=== PATIENT | male | born 1945 | race Caucasian/White ===

== ENCOUNTER → 2023-06-11 06:37 | Outpatient (REF) | payer MEDICARE, OTHER, SELFPAY ==
[2023-06-11] VITALS (7 sets, daily range): BP systolic 51–157; BP diastolic 65–82
[2023-06-11] MEDS: ANCEF 10 IV (08:28)
== END ==
LOC: RADI 06:37
PROVIDERS: ATTENDING PHYSICIAN Internal Medicine Hematology & Oncology; FAMILY PHYSICIAN Internal Medicine
DX: C34.90 Malignant neoplasm of unspecified part of unspecified bronchus or lung (principal)
CPT/HCPCS: 36561; 76937; 77001; 99152; 99153; C1788

== ENCOUNTER → 2023-06-18 08:54 | Outpatient (REF) | payer MEDICARE, OTHER, SELFPAY ==
[2023-06-18 11:51] LABS: % Basophils 0.2 % (0-2); % Eosinophils 9.3 % (0-6); % Immature Granulocytes 1.3 % (0-0.5); % Lymphocytes 11.9 % (20.5-51.1); % Monocytes 5.5 % (1.7-9.3); % Neutrophils 71.8 % (42.2-75.2); Absolute Eosinophils 0.9 10^3/uL (0-0.7); Absolute Immature Granulocytes 0.1 10^3/uL (0-0.05); Absolute Lymphocytes 1.1 10^3/uL (1.2-3.4); Absolute Monocytes 0.5 10^3/uL (0.1-0.6); Absolute Neutrophils 6.5 10^3/uL (1.4-6.5); Hematocrit 43.7 % (39.0-52.0); Hemoglobin 14.5 g/dL (13.0-18.0); Mean Corp Hgb Conc. 33.2 g/dL (33.0-37.0); Mean Corpuscular Hgb 30.9 pg (27.0-31.0); Nucleated Red Blood Cells % 0 % (-); Red Cell Dist. Width 12.3 % (11.5-14.5); White Blood Cell Count 9.1 10^3/uL (4.8-10.8)
[2023-06-18 15:36] LABS: Mean Platelet Volume 11.5 fL (7.4-10.4); Platelet Count 72 10^3/uL (130-400)
== END ==
LOC: HWLAB 08:54
PROVIDERS: ATTENDING PHYSICIAN Internal Medicine Hematology & Oncology; FAMILY PHYSICIAN Internal Medicine
DX: C34.32 Malignant neoplasm of lower lobe, left bronchus or lung (principal); Z85.820 Personal history of malignant melanoma of skin; C82.09 Follicular lymphoma grade I, extranodal and solid organ sites
CPT/HCPCS: 36415; 85025

== ENCOUNTER 2023-06-21 19:59 | Emergency (ER) | payer MEDICARE, OTHER, SELFPAY ==
[2023-06-21] VITALS (9 sets, daily range): BP systolic 125–184; BP diastolic 69–91; PULSE 61–71; BMI 30.6
--- NOTE | 2023-06-21 20:28 | ED.GENMED ---
History of Present Illness
<Rod Love PA-C - Last Filed: 06/24/23 08:35>
General
Chief Complaint: Cardiac Symptoms
Source: patient
Exam Limitations: none
Time Seen by Provider: 06/21/23 20:03
Travel History
Have you had any contact with someone who has COVID-19?: No
Do you have any symptoms of coronavirus? Fever > 100 degrees, chills, cough, shortness of breath, sore throat, loss of taste or smell, muscle aches, or headache?: No
History of Present Illness
History of Present Illness:
77-year-old male presents with pounding heart sensation since about 5 hours prior. It has been coming and going. No significant chest pain. He denies shortness of breath nausea or diaphoresis. He had his first chemo treatment for lung cancer
about 1 week ago. He is not anticoagulated. No leg swelling or calf pain. No abdominal pain. No other complaints at this time
Past History
<Rod Love PA-C - Last Filed: 06/24/23 08:35>
Past History
ED Past Medical History: Hypercholesterolemia
ED Past Surgical History: None
Social History
Tobacco: Non-smoker
Alcohol: Occasional
Drug: None
Personal:
Living: with family
Phy Exam
<Rod Love PA-C - Last Filed: 06/24/23 08:35>
Physical Exam
Physical Exam:
General: Well-appearing male no acute respiratory distress
HEENT: Normocephalic atraumatic neck is supple
Heart: Regular rate and rhythm no murmurs
Lungs: Clear to auscultation bilaterally no wheezing
Extremities: No cyanosis or edema
Skin: Warm no rash
Course
<Rod Love PA-C - Last Filed: 06/24/23 08:35>
Orders/Labs/Results
Orders:
Orders
06/21/23 20:02
Electrocardiogram (*1) Urgent
Reason for Study: Chest Pain
EKG- Treatment ONCE
06/21/23 20:27
Complete Blood Count/With Diff Urgent
Comprehensive Metabolic Panel Urgent
Manual Differential Urgent
TSH Reflex To Free T4 Urgent
06/21/23 21:24
CT Chest Pe Study Urgent
Comment:
Reason For Exam: palpitations
06/21/23 21:31
Troponin I Urgent
06/21/23 23:04
0.9% Sodium Chloride 500 ml [Nss] 500 ml IV BOLUS
06/21/23 23:21
Orthostatic VS- Treatment ONCE
06/21/23 23:52
Urinalysis Reflex To Culture Urgent
Date Specimen was Collected: 06/22/23
Time Specimen was Collected: 00:05
Abnormal Lab Results
06/21/23
20:27
RBC 4.24 L 10^6/uL
(4.70-6.10)
Hct 36.7 L %
(39.0-52.0)
MCH 31.1 H pg
(27.0-31.0)
Plt Count 89 L D 10^3/uL
(130-400)
MPV 10.5 H fL
(7.4-10.4)
Abs Immat Gran (auto) 1.0 H 10^3/uL
(0-0.05)
Absolute Monos (auto) 1.2 H 10^3/uL
(0.1-0.6)
Immature Gran % 10.4 H %
(0-0.5)
Lymphocytes % 16.9 L %
(20.5-51.1)
Monocytes % 12.3 H %
(1.7-9.3)
Segmented Neutrophils 41 L %
(42-75)
Band Neutrophils 21 H %
(0-3)
Lymphocytes (Manual) 16 L %
(20-51)
Monocytes (Manual) 10 H %
(2-9)
Sodium 134 L mmol/L
(135-145)
Creatinine 0.6 L mg/dL
(0.7-1.3)
Glucose 111 H mg/dl
(70-99)
Total Protein 5.9 L g/dl
(6.3-8.2)
Albumin 3.4 L g/dl
(3.5-5.0)
06/21/23 20:27
06/21/23 20:27
Vital Signs
Initial and Last Documented VS:
Initial Vital Signs
Temp Pulse Resp BP Pulse Ox
97.8 F 64 16 155/91 96
06/21/23 20:03 06/21/23 20:03 06/21/23 20:03 06/21/23 20:03 06/21/23 20:03
Last Documented Vital Signs
Temp Pulse Resp BP Pulse Ox
97.8 F 61 12 146/72 99
06/21/23 20:03 06/22/23 00:00 06/22/23 00:00 06/22/23 00:00 06/22/23 00:00
<Mika Henderson MD - Last Filed: 06/22/23 00:23>
Orders/Labs/Results
Orders:
Orders
06/21/23 20:02
Electrocardiogram (*1) Urgent
Reason for Study: Chest Pain
EKG- Treatment ONCE
06/21/23 20:27
Complete Blood Count/With Diff Urgent
Comprehensive Metabolic Panel Urgent
Manual Differential Urgent
TSH Reflex To Free T4 Urgent
06/21/23 21:24
CT Chest Pe Study Urgent
Comment:
Reason For Exam: palpitations
06/21/23 21:31
Troponin I Urgent
06/21/23 23:04
0.9% Sodium Chloride 500 ml [Nss] 500 ml IV BOLUS
06/21/23 23:21
Orthostatic VS- Treatment ONCE
06/21/23 23:52
Urinalysis Reflex To Culture Urgent
Date Specimen was Collected: 06/22/23
Time Specimen was Collected: 00:05
Abnormal Lab Results
06/21/23
20:27
RBC 4.24 L 10^6/uL
(4.70-6.10)
Hct 36.7 L %
(39.0-52.0)
MCH 31.1 H pg
(27.0-31.0)
Plt Count 89 L D 10^3/uL
(130-400)
MPV 10.5 H fL
(7.4-10.4)
Abs Immat Gran (auto) 1.0 H 10^3/uL
(0-0.05)
Absolute Monos (auto) 1.2 H 10^3/uL
(0.1-0.6)
Immature Gran % 10.4 H %
(0-0.5)
Lymphocytes % 16.9 L %
(20.5-51.1)
Monocytes % 12.3 H %
(1.7-9.3)
Segmented Neutrophils 41 L %
(42-75)
Band Neutrophils 21 H %
(0-3)
Lymphocytes (Manual) 16 L %
(20-51)
Monocytes (Manual) 10 H %
(2-9)
Sodium 134 L mmol/L
(135-145)
Creatinine 0.6 L mg/dL
(0.7-1.3)
Glucose 111 H mg/dl
(70-99)
Total Protein 5.9 L g/dl
(6.3-8.2)
Albumin 3.4 L g/dl
(3.5-5.0)
06/21/23 20:27
06/21/23 20:27
Vital Signs
Initial and Last Documented VS:
Initial Vital Signs
Temp Pulse Resp BP Pulse Ox
97.8 F 64 16 155/91 96
06/21/23 20:03 06/21/23 20:03 06/21/23 20:03 06/21/23 20:03 06/21/23 20:03
Last Documented Vital Signs
Temp Pulse Resp BP Pulse Ox
97.8 F 61 12 146/72 99
06/21/23 20:03 06/22/23 00:00 06/22/23 00:00 06/22/23 00:00 06/22/23 00:00
<Rod Love PA-C - Last Filed: 06/24/23 08:35>
MDM/Problems Addressed
Differential Diagnosis Includes:
Palpitations. Consider arrhythmia electrolyte abnormality. Will check labs keep on monitor. EKG shows sinus rhythm.
<Rod Love PA-C - Last Filed: 06/24/23 08:35>
*Critical Care Note
Total Time (30-74mins, 75-104mins- exclusive of procedures): Not Applicable
<Rod Love PA-C - Last Filed: 06/24/23 08:35>
Update Note
Update Note:
Workup here negative. CT without PE. Labs ok. Orthostatic VS with drop upon standing. Given ns 500ml. Suspect volume depletion. No arrhythmias. Have patient follow-up with oncology. Will check urinalysis secondary to bandemia
ED Attending Note
<Rod Love PA-C - Last Filed: 06/24/23 08:35>
-
Portions of this chart may have been created with voice recognition software.� Occasional wrong word or��sound alike� substitutions may have occurred due to the inherent limitations of voice recognition software.
<Miak Henderson MD - Last Filed: 06/22/23 00:23>
ED Attending Note
I performed the substantive portion of visit, reviewed & personally made and approve the management plan that is documented in note by myself or MADHU.: Yes
I performed a history and physical exam of patient and discussed management with resident, I reviewed resident's note and agree with documented findings and plan of care.: Yes
ED Attending Note:
Patient currently on chemotherapy for lung cancer. Had relatively sudden onset of heart pounding at about 4 PM. Not really racing. No chest pain pressure indigestion feeling. No shortness of breath. No tearing pain. Has been relatively
constant ongoing pounding since then although does wax and wane. Normally blood pressure is low.
On exam patient is nontoxic in no distress. Blood pressure mildly elevated at 150/78. Heart rate is normal. He is perfusing well nontoxic and in no distress.
Lungs are clear and equal. Heart regular rate and rhythm. Well-healing port right upper chest wall. Abdomen nontender. Warm and dry. No lower extremity swelling or cord.
Impression pounding sensation for 6 hours nonexertional. Highly doubt cardiac. EKG normal. Troponin pending. Will have a CT scan done to rule out pulmonary emboli. Has had no arrhythmias here. Not describing syncope or heart racing.
0020... No serious etiology found for patient's pounding sensation. Very stable vital signs throughout his ER stay. Has had symptoms for 6 to 8 hours with negative troponin. Do not feel repeat troponin is warranted. CT scan negative. Does have
a bandemia but received a Neupogen like drug last week. Likely the etiology. No other infectious symptoms. All discussed with the patient and spouse. Stable for discharge to follow-up.
Discharge Plan
Departure
Patient Disposition: Home (Routine Discharge)
Date of Disposition: 06/21/23
Time of Disposition: 23:53
Patient with high blood pressure during this ER visit?: No
Discharge Problem:
Palpitation
Instructions: Palpitations
Prescriptions:
No Action
ascorbic acid (vitamin C) [Vitamin C] 500 MG tablet
500 mg PO DAILY
coenzyme [id number] E 1 CAP capsule
1 cap PO DAILY
cholecalciferol (vitamin D3) 2,000 UNITS tablet
2,000 units PO DAILY
multivitamin with folic acid [Tab-A-James] 1 TABLET tablet
1 tab PO Q48H
magnesium oxide 400 MG tablet
400 mg PO DAILY
pantoprazole 40 mg Tablet,Delayed Release (Dr/Ec)
40 mg PO DAILY
zinc 25 mg Tablet
50 mg PO DAILY
PreserVision AREDS
1 tab PO DAILY
simvastatin 20 mg Tablet
20 mg PO DAILY
ibuprofen 600 mg tablet
600 mg PO Q6H PRN (Reason: moderate pain) Qty: 20 1RF
benzonatate [Tessalon Perles] 100 mg Capsule
100 mg PO BID PRN (Reason: cough)
folic acid 1 mg Tablet
1 mg PO DAILY
Referrals:
Alejandra Devlin MD [Family Provider] -
Activity Restrictions/Additional Instructions:
Stay hydrated. Please follow-up with your oncologist. Return for worsening symptoms otherwise
Interventions
Interventions:
*Risk Screen - Suicide Last Done: 06/21/23 20:03
*General Assessment Last Done: 06/21/23 21:55
*Neglect/Abuse Screening Last Done: 06/21/23 20:03
ED- Fall Risk Assessment Last Done: 06/21/23 20:35
*ED COVID-19 Vaccine History Last Done: 06/21/23 20:03
*Nursing Disposition Last Done: 06/22/23 00:52
ED- Pulmonary Assessment Last Done: 06/21/23 20:35
ED- Cardiac Assessment Last Done: 06/21/23 20:35
Discharge Date and Time
Discharge Date/Time: 06/22/23 00:53
[2023-06-21 20:42] LABS: % Basophils 0.2 % (0-2); % Eosinophils 4.5 % (0-6); % Immature Granulocytes 10.4 % (0-0.5); % Lymphocytes 16.9 % (20.5-51.1); % Monocytes 12.3 % (1.7-9.3); Absolute Eosinophils 0.4 10^3/uL (0-0.7); Absolute Lymphocytes 1.6 10^3/uL (1.2-3.4); Absolute Monocytes 1.2 10^3/uL (0.1-0.6); Absolute Neutrophils 5.3 10^3/uL (1.4-6.5); Hematocrit 36.7 % (39.0-52.0); Hemoglobin 13.2 g/dL (13.0-18.0); Mean Corpuscular Hgb 31.1 pg (27.0-31.0); Mean Corpuscular Volume 86.6 fL (80.0-94.0); Mean Platelet Volume 10.5 fL (7.4-10.4); Nucleated Red Blood Cells % 0.2 % (-); Platelet Count 89 10^3/uL (130-400); Red Blood Cell Count 4.24 10^6/uL (4.70-6.10); Red Cell Dist. Width 12.3 % (11.5-14.5); White Blood Cell Count 9.5 10^3/uL (4.8-10.8)
[2023-06-21 20:56] LABS: Absolute Neutrophils -Man Diff 5.8 10^3/uL (1.4-6.5); Band Neutrophils 21 % (0-3); Eosinophils 3 % (0-6); Lymphocytes 16 % (20-51); Metamyelocytes 1 % (-); Monocytes 10 % (2-9); Myelocytes 8 % (-); Normal RBC Morphology Yes; Platelets Checked Yes; Segmented Neutrophils 41 % (42-75); Total Cells Counted 100
[2023-06-21 21:09] LABS: ALT (SGPT) 22 U/L (0-50); AST (SGOT) 20 U/L (17-59); Albumin 3.4 g/dl (3.5-5.0); Alkaline Phosphatase 79 U/L (38-126); Blood Urea Nitrogen 12 mg/dl (9-20); Calcium 8.9 mg/dl (8.4-10.2); Carbon Dioxide 27 mmol/L (22-30); Chloride 101 mmol/L (98-107); Estimated Creatinine Clearance 118 ml/min; Glucose 111 mg/dl (70-99); Sodium 134 mmol/L (135-145); Total Bilirubin 0.5 mg/dl (0.2-1.3); Total Protein 5.9 g/dl (6.3-8.2); eGFR > 60.00
[2023-06-21 21:34] LABS: TSH Reflex To Free T4 4.19 uIU/ml (0.47-4.68)
[2023-06-21 21:59] LABS: Troponin I < 0.012 ng/ml
[2023-06-21] MEDS: NSS 500 IV (23:10)
[2023-06-22] VITALS: BP 146/72
[2023-06-22 00:37] LABS: Urine Albumin Negative (Neg - Trace); Urine Bilirubin Negative (Negative); Urine Character Clear (Clear); Urine Color Yellow; Urine Glucose Negative (Negative); Urine Ketone Negative (Negative); Urine Leukocyte Negative (Negative); Urine Nitrite Negative (Negative); Urine Occult Blood Negative (Negative); Urine Urobilinogen Negative (Neg - 1+)
== END 2023-06-22 00:53 | disposition home or self-care (01) ==
LOC: EMR 19:59
PROVIDERS: Emergency Medicine; Physician Assistant; EMERGENCY PHYSICIAN Emergency Medicine; FAMILY PHYSICIAN Internal Medicine
DX: R00.2 Palpitations (principal); D72.825 Bandemia; C34.90 Malignant neoplasm of unspecified part of unspecified bronchus or lung
CPT/HCPCS: 99285; 71275; 80053; 81003; 84443; 84484; 85025; 93005; Q9967

== ENCOUNTER → 2023-06-25 08:54 | Outpatient (REF) | payer MEDICARE, OTHER, SELFPAY ==
[2023-06-25 12:38] LABS: Hematocrit 40.9 % (39.0-52.0); Hemoglobin 13.9 g/dL (13.0-18.0); Mean Corpuscular Hgb 31.4 pg (27.0-31.0); Mean Corpuscular Volume 92.5 fL (80.0-94.0); Mean Platelet Volume 10.3 fL (7.4-10.4); Platelet Count 131 10^3/uL (130-400); Red Blood Cell Count 4.42 10^6/uL (4.70-6.10); Red Cell Dist. Width 12.5 % (11.5-14.5)
[2023-06-25 13:12] LABS: Nucleated Red Blood Cells % 0.1 % (-); Segmented Neutrophils 55 % (42-75)
[2023-06-25 13:13] LABS: Atypical Lymphocytes 2 %; Eosinophils 2 % (0-6); Metamyelocytes 4 % (-); Monocytes 9 % (2-9); Myelocytes 6 % (-)
[2023-06-25 13:14] LABS: Absolute Neutrophils -Man Diff 12.6 10^3/uL (1.4-6.5)
[2023-06-25 13:15] LABS: Lymphocytes 14 % (20-51); Normal RBC Morphology Yes; Platelets Checked Yes; Total Cells Counted 100
[2023-06-25 13:16] LABS: Band Neutrophils 8 % (0-3)
== END ==
LOC: HWLAB 08:54
PROVIDERS: ATTENDING PHYSICIAN Internal Medicine Hematology & Oncology; FAMILY PHYSICIAN Internal Medicine
DX: C34.32 Malignant neoplasm of lower lobe, left bronchus or lung (principal); Z85.820 Personal history of malignant melanoma of skin; C82.09 Follicular lymphoma grade I, extranodal and solid organ sites
CPT/HCPCS: 36415; 85025

== ENCOUNTER → 2023-06-30 07:16 | Outpatient (REF) | payer MEDICARE, OTHER, SELFPAY ==
[2023-06-30 07:47] LABS: % Basophils 0.5 % (0-2); % Eosinophils 1.9 % (0-6); % Immature Granulocytes 7.3 % (0-0.5); % Lymphocytes 11.7 % (20.5-51.1); % Monocytes 7.2 % (1.7-9.3); % Neutrophils 71.4 % (42.2-75.2); Absolute Basophils 0.1 10^3/uL (0-0.2); Absolute Eosinophils 0.3 10^3/uL (0-0.7); Absolute Immature Granulocytes 1.2 10^3/uL (0-0.05); Absolute Lymphocytes 1.9 10^3/uL (1.2-3.4); Absolute Monocytes 1.2 10^3/uL (0.1-0.6); Absolute Neutrophils 11.7 10^3/uL (1.4-6.5); Hematocrit 39.4 % (39.0-52.0); Hemoglobin 13.7 g/dL (13.0-18.0); Mean Corp Hgb Conc. 34.8 g/dL (33.0-37.0); Mean Corpuscular Hgb 30.6 pg (27.0-31.0); Mean Corpuscular Volume 88.1 fL (80.0-94.0); Mean Platelet Volume 9.6 fL (7.4-10.4); Nucleated Red Blood Cells % 0.1 % (-); Platelet Count 213 10^3/uL (130-400); Red Blood Cell Count 4.47 10^6/uL (4.70-6.10); White Blood Cell Count 16.3 10^3/uL (4.8-10.8)
[2023-06-30 08:39] LABS: ALT (SGPT) 23 U/L (0-50); AST (SGOT) 24 U/L (17-59); Albumin 3.8 g/dl (3.5-5.0); Alkaline Phosphatase 120 U/L (38-126); Blood Urea Nitrogen 11 mg/dl (9-20); Carbon Dioxide 27 mmol/L (22-30); Chloride 106 mmol/L (98-107); Glucose 90 mg/dl (70-99); Potassium 4.5 mmol/L (3.5-5.1); Sodium 138 mmol/L (135-145); Total Bilirubin 0.5 mg/dl (0.2-1.3); Total Protein 6.5 g/dl (6.3-8.2); eGFR > 60.00
== END ==
LOC: REG 07:16
PROVIDERS: ATTENDING PHYSICIAN Nurse Practitioner Primary Care; FAMILY PHYSICIAN Internal Medicine
DX: C34.32 Malignant neoplasm of lower lobe, left bronchus or lung (principal); Z85.820 Personal history of malignant melanoma of skin; C82.09 Follicular lymphoma grade I, extranodal and solid organ sites
CPT/HCPCS: 36415; 80053; 85025

== ENCOUNTER → 2023-07-12 08:51 | Outpatient (REF) | payer MEDICARE, OTHER, SELFPAY ==
[2023-07-12 12:47] LABS: % Basophils 0.2 % (0-2); % Eosinophils 1.2 % (0-6); % Lymphocytes 8.9 % (20.5-51.1); % Monocytes 7.6 % (1.7-9.3); % Neutrophils 79.1 % (42.2-75.2); Absolute Eosinophils 0.2 10^3/uL (0-0.7); Absolute Immature Granulocytes 0.4 10^3/uL (0-0.05); Absolute Lymphocytes 1.1 10^3/uL (1.2-3.4); Hematocrit 37.3 % (39.0-52.0); Hemoglobin 12.3 g/dL (13.0-18.0); Mean Corpuscular Hgb 30.6 pg (27.0-31.0); Mean Corpuscular Volume 92.8 fL (80.0-94.0); Mean Platelet Volume 11.1 fL (7.4-10.4); Nucleated Red Blood Cells % 0 % (-); Platelet Count 141 10^3/uL (130-400); Red Blood Cell Count 4.02 10^6/uL (4.70-6.10); Red Cell Dist. Width 13.6 % (11.5-14.5); White Blood Cell Count 12.6 10^3/uL (4.8-10.8)
== END ==
LOC: HWLAB 08:51
PROVIDERS: ATTENDING PHYSICIAN Internal Medicine Hematology & Oncology; FAMILY PHYSICIAN Internal Medicine
DX: C34.32 Malignant neoplasm of lower lobe, left bronchus or lung (principal); Z85.820 Personal history of malignant melanoma of skin; C82.09 Follicular lymphoma grade I, extranodal and solid organ sites
CPT/HCPCS: 36415; 85025

== ENCOUNTER → 2023-07-20 08:41 | Outpatient (REF) | payer MEDICARE, OTHER, SELFPAY ==
[2023-07-20 11:54] LABS: % Basophils 0.8 % (0-2); % Eosinophils 3.7 % (0-6); % Immature Granulocytes 6.1 % (0-0.5); % Lymphocytes 12.1 % (20.5-51.1); % Monocytes 5.5 % (1.7-9.3); % Neutrophils 71.8 % (42.2-75.2); Absolute Basophils 0.1 10^3/uL (0-0.2); Absolute Eosinophils 0.5 10^3/uL (0-0.7); Absolute Immature Granulocytes 0.7 10^3/uL (0-0.05); Absolute Lymphocytes 1.5 10^3/uL (1.2-3.4); Absolute Monocytes 0.7 10^3/uL (0.1-0.6); Absolute Neutrophils 8.7 10^3/uL (1.4-6.5); Hematocrit 36.3 % (39.0-52.0); Hemoglobin 12.6 g/dL (13.0-18.0); Mean Corp Hgb Conc. 34.7 g/dL (33.0-37.0); Mean Corpuscular Hgb 31.8 pg (27.0-31.0); Mean Corpuscular Volume 91.7 fL (80.0-94.0); Mean Platelet Volume 10.3 fL (7.4-10.4); Nucleated Red Blood Cells % 0.2 % (-); Platelet Count 128 10^3/uL (130-400); Red Blood Cell Count 3.96 10^6/uL (4.70-6.10); Red Cell Dist. Width 16.5 % (11.5-14.5); White Blood Cell Count 12.1 10^3/uL (4.8-10.8)
== END ==
LOC: HWLAB 08:41
PROVIDERS: ATTENDING PHYSICIAN Internal Medicine Hematology & Oncology; FAMILY PHYSICIAN Internal Medicine
DX: C34.32 Malignant neoplasm of lower lobe, left bronchus or lung (principal); Z85.820 Personal history of malignant melanoma of skin; C82.09 Follicular lymphoma grade I, extranodal and solid organ sites
CPT/HCPCS: 36415; 85025

== ENCOUNTER → 2023-08-02 07:10 | Outpatient (REF) | payer MEDICARE, OTHER, SELFPAY ==
[2023-08-02 09:33] LABS: % Basophils 0.3 % (0-2); % Eosinophils 1.8 % (0-6); % Immature Granulocytes 1.5 % (0-0.5); % Lymphocytes 9.1 % (20.5-51.1); % Monocytes 7.1 % (1.7-9.3); % Neutrophils 80.2 % (42.2-75.2); Absolute Eosinophils 0.2 10^3/uL (0-0.7); Absolute Immature Granulocytes 0.2 10^3/uL (0-0.05); Absolute Lymphocytes 0.9 10^3/uL (1.2-3.4); Absolute Monocytes 0.7 10^3/uL (0.1-0.6); Absolute Neutrophils 8.2 10^3/uL (1.4-6.5); Hematocrit 36.4 % (39.0-52.0); Hemoglobin 12.3 g/dL (13.0-18.0); Mean Corp Hgb Conc. 33.8 g/dL (33.0-37.0); Mean Corpuscular Hgb 32.3 pg (27.0-31.0); Mean Corpuscular Volume 95.5 fL (80.0-94.0); Mean Platelet Volume 10.6 fL (7.4-10.4); Nucleated Red Blood Cells % 0 % (-); Platelet Count 132 10^3/uL (130-400); Red Blood Cell Count 3.81 10^6/uL (4.70-6.10); Red Cell Dist. Width 17.5 % (11.5-14.5); White Blood Cell Count 10.2 10^3/uL (4.8-10.8)
[2023-08-02 09:44] LABS: Blood Urea Nitrogen 14 mg/dl (9-20); Calcium 9.3 mg/dl (8.4-10.2); Carbon Dioxide 27 mmol/L (22-30); Chloride 106 mmol/L (98-107); Glucose 87 mg/dl (70-99); Sodium 138 mmol/L (135-145); eGFR > 60.00
== END ==
LOC: HWLAB 07:10
PROVIDERS: ATTENDING PHYSICIAN Internal Medicine Hematology & Oncology; FAMILY PHYSICIAN Internal Medicine
DX: C34.32 Malignant neoplasm of lower lobe, left bronchus or lung (principal); Z85.820 Personal history of malignant melanoma of skin; C82.09 Follicular lymphoma grade I, extranodal and solid organ sites
CPT/HCPCS: 36415; 80048; 85025

== ENCOUNTER → 2023-08-10 08:41 | Outpatient (REF) | payer MEDICARE, OTHER, SELFPAY ==
[2023-08-10 13:07] LABS: % Basophils 0.4 % (0-2); % Eosinophils 2.1 % (0-6); % Immature Granulocytes 1.8 % (0-0.5); % Lymphocytes 13.4 % (20.5-51.1); % Monocytes 7.4 % (1.7-9.3); % Neutrophils 74.9 % (42.2-75.2); Absolute Eosinophils 0.2 10^3/uL (0-0.7); Absolute Immature Granulocytes 0.2 10^3/uL (0-0.05); Absolute Lymphocytes 1.3 10^3/uL (1.2-3.4); Absolute Monocytes 0.7 10^3/uL (0.1-0.6); Absolute Neutrophils 7.1 10^3/uL (1.4-6.5); Hematocrit 37.9 % (39.0-52.0); Hemoglobin 12.5 g/dL (13.0-18.0); Mean Corpuscular Hgb 32.8 pg (27.0-31.0); Mean Corpuscular Volume 99.5 fL (80.0-94.0); Mean Platelet Volume 10.1 fL (7.4-10.4); Nucleated Red Blood Cells % 0 % (-); Platelet Count 100 10^3/uL (130-400); Red Blood Cell Count 3.81 10^6/uL (4.70-6.10); Red Cell Dist. Width 19.8 % (11.5-14.5); White Blood Cell Count 9.5 10^3/uL (4.8-10.8)
[2023-08-10 13:45] LABS: Blood Urea Nitrogen 10 mg/dl (9-20); Calcium 9.1 mg/dl (8.4-10.2); Carbon Dioxide 27 mmol/L (22-30); Chloride 106 mmol/L (98-107); Glucose 99 mg/dl (70-99); Potassium 4.1 mmol/L (3.5-5.1); Sodium 137 mmol/L (135-145); eGFR > 60.00
== END ==
LOC: HWLAB 08:41
PROVIDERS: ATTENDING PHYSICIAN Internal Medicine Hematology & Oncology; FAMILY PHYSICIAN Internal Medicine
DX: C34.32 Malignant neoplasm of lower lobe, left bronchus or lung (principal); Z85.820 Personal history of malignant melanoma of skin; C82.09 Follicular lymphoma grade I, extranodal and solid organ sites
CPT/HCPCS: 36415; 80048; 85025

== ENCOUNTER → 2023-08-22 08:42 | Outpatient (REF) | payer MEDICARE, OTHER, SELFPAY ==
[2023-08-22 12:35] LABS: % Basophils 0.1 % (0-2); % Eosinophils 1.3 % (0-6); % Immature Granulocytes 2.2 % (0-0.5); % Lymphocytes 9.4 % (20.5-51.1); % Monocytes 8.6 % (1.7-9.3); % Neutrophils 78.4 % (42.2-75.2); Absolute Eosinophils 0.2 10^3/uL (0-0.7); Absolute Immature Granulocytes 0.3 10^3/uL (0-0.05); Absolute Lymphocytes 1.1 10^3/uL (1.2-3.4); Absolute Neutrophils 9.1 10^3/uL (1.4-6.5); Hematocrit 34.6 % (39.0-52.0); Hemoglobin 11.7 g/dL (13.0-18.0); Mean Corp Hgb Conc. 33.8 g/dL (33.0-37.0); Mean Corpuscular Hgb 33.4 pg (27.0-31.0); Mean Corpuscular Volume 98.9 fL (80.0-94.0); Nucleated Red Blood Cells % 0 % (-); Platelet Count 112 10^3/uL (130-400); Red Cell Dist. Width 18.6 % (11.5-14.5); White Blood Cell Count 11.6 10^3/uL (4.8-10.8)
[2023-08-22 13:03] LABS: Blood Urea Nitrogen 13 mg/dl (9-20); Calcium 9.4 mg/dl (8.4-10.2); Carbon Dioxide 27 mmol/L (22-30); Chloride 101 mmol/L (98-107); Glucose 84 mg/dl (70-99); Potassium 4.3 mmol/L (3.5-5.1); Sodium 137 mmol/L (135-145); eGFR > 60.00
== END ==
LOC: HWLAB 08:42
PROVIDERS: ATTENDING PHYSICIAN Internal Medicine Hematology & Oncology; FAMILY PHYSICIAN Internal Medicine
DX: C34.32 Malignant neoplasm of lower lobe, left bronchus or lung (principal); Z85.820 Personal history of malignant melanoma of skin; C82.09 Follicular lymphoma grade I, extranodal and solid organ sites
CPT/HCPCS: 36415; 80048; 85025

== ENCOUNTER → 2023-08-30 08:37 | Outpatient (REF) | payer MEDICARE, OTHER, SELFPAY ==
[2023-08-30 13:11] LABS: % Basophils 0.2 % (0-2); % Immature Granulocytes 2.9 % (0-0.5); % Lymphocytes 10.2 % (20.5-51.1); % Monocytes 6.9 % (1.7-9.3); % Neutrophils 78.8 % (42.2-75.2); Absolute Eosinophils 0.1 10^3/uL (0-0.7); Absolute Immature Granulocytes 0.4 10^3/uL (0-0.05); Absolute Lymphocytes 1.3 10^3/uL (1.2-3.4); Absolute Monocytes 0.9 10^3/uL (0.1-0.6); Absolute Neutrophils 9.7 10^3/uL (1.4-6.5); Hematocrit 38.4 % (39.0-52.0); Hemoglobin 12.7 g/dL (13.0-18.0); Mean Corp Hgb Conc. 33.1 g/dL (33.0-37.0); Mean Corpuscular Hgb 32.6 pg (27.0-31.0); Mean Corpuscular Volume 98.7 fL (80.0-94.0); Mean Platelet Volume 10.8 fL (7.4-10.4); Nucleated Red Blood Cells % 0 % (-); Platelet Count 100 10^3/uL (130-400); Red Blood Cell Count 3.89 10^6/uL (4.70-6.10); White Blood Cell Count 12.3 10^3/uL (4.8-10.8)
[2023-08-30 14:23] LABS: Blood Urea Nitrogen 12 mg/dl (9-20); Calcium 9.1 mg/dl (8.4-10.2); Carbon Dioxide 29 mmol/L (22-30); Chloride 105 mmol/L (98-107); Glucose 134 mg/dl (70-99); Potassium 4.4 mmol/L (3.5-5.1); Sodium 138 mmol/L (135-145); eGFR > 60.00
== END ==
LOC: HWLAB 08:37
PROVIDERS: ATTENDING PHYSICIAN Internal Medicine Hematology & Oncology; FAMILY PHYSICIAN Internal Medicine
DX: C34.32 Malignant neoplasm of lower lobe, left bronchus or lung (principal); Z85.820 Personal history of malignant melanoma of skin; C82.09 Follicular lymphoma grade I, extranodal and solid organ sites
CPT/HCPCS: 36415; 80048; 85025

== ENCOUNTER → 2023-10-30 06:34 | Outpatient (REF) | payer MEDICARE, OTHER, SELFPAY ==
[2023-10-30 10:09] LABS: ALT (SGPT) 18 U/L (0-50); AST (SGOT) 23 U/L (17-59); Albumin 4.3 g/dl (3.5-5.0); Alkaline Phosphatase 64 U/L (38-126); Blood Urea Nitrogen 14 mg/dl (9-20); Calcium 9.6 mg/dl (8.4-10.2); Carbon Dioxide 27 mmol/L (22-30); Chloride 105 mmol/L (98-107); Glucose 91 mg/dl (70-99); HDL Cholesterol 54 mg/dl; LDL Cholesterol, Calculated 76 mg/dl; Potassium 4.5 mmol/L (3.5-5.1); Sodium 140 mmol/L (135-145); Total Bilirubin 0.9 mg/dl (0.2-1.3); Total Cholesterol 146 mg/dl (50-199); Total Protein 6.9 g/dl (6.3-8.2); Triglyceride 81 mg/dl (10-149); Very Low Density Lipoprotein 16 mg/dl (0-30); eGFR > 60.00
[2023-10-30 10:32] LABS: PSA, Total - Diagnostic 5.32 ng/ml (0.0-4.0)
== END ==
LOC: HWLAB 06:34
PROVIDERS: ATTENDING PHYSICIAN Specialist; FAMILY PHYSICIAN Internal Medicine; REFERRING PHYSICIAN Internal Medicine Hematology & Oncology
DX: R97.20 Elevated prostate specific antigen [PSA] (principal); E78.5 Hyperlipidemia, unspecified
CPT/HCPCS: 36415; 80053; 80061; 84153

== ENCOUNTER → 2023-11-15 11:53 | Outpatient (REF) | payer MEDICARE, OTHER, SELFPAY ==
[2023-11-15 12:17] VITALS: BP 131/83; BP_SYST 51
== END ==
LOC: RADI 11:53
PROVIDERS: ATTENDING PHYSICIAN Internal Medicine Hematology & Oncology; FAMILY PHYSICIAN Internal Medicine
DX: Z45.2 Encounter for adjustment and management of vascular access device (principal); Z85.118 Personal history of other malignant neoplasm of bronchus and lung
CPT/HCPCS: 36590; 77001

== ENCOUNTER → 2024-01-22 07:39 | Outpatient (REF) | payer MEDICARE, OTHER, SELFPAY ==
[2024-01-22 09:35] LABS: % Basophils 0.5 % (0-2); % Eosinophils 3.9 % (0-6); % Immature Granulocytes 0.3 % (0-0.5); % Lymphocytes 27.7 % (20.5-51.1); % Monocytes 12.8 % (1.7-9.3); % Neutrophils 54.8 % (42.2-75.2); Absolute Eosinophils 0.2 10^3/uL (0-0.7); Absolute Lymphocytes 1.1 10^3/uL (1.2-3.4); Absolute Monocytes 0.5 10^3/uL (0.1-0.6); Absolute Neutrophils 2.1 10^3/uL (1.4-6.5); Hematocrit 41.1 % (39.0-52.0); Hemoglobin 14.4 g/dL (13.0-18.0); Mean Corpuscular Hgb 29.9 pg (27.0-31.0); Mean Corpuscular Volume 85.3 fL (80.0-94.0); Mean Platelet Volume 10.8 fL (7.4-10.4); Nucleated Red Blood Cells % 0 % (-); Platelet Count 142 10^3/uL (130-400); Red Blood Cell Count 4.82 10^6/uL (4.70-6.10); Red Cell Dist. Width 13.4 % (11.5-14.5); White Blood Cell Count 3.8 10^3/uL (4.8-10.8)
[2024-01-22 09:48] LABS: ALT (SGPT) 22 U/L (0-50); AST (SGOT) 24 U/L (17-59); Albumin 4.2 g/dl (3.5-5.0); Alkaline Phosphatase 57 U/L (38-126); Blood Urea Nitrogen 14 mg/dl (9-20); Calcium 9.6 mg/dl (8.4-10.2); Carbon Dioxide 24 mmol/L (22-30); Chloride 102 mmol/L (98-107); Glucose 107 mg/dl (70-99); Potassium 4.6 mmol/L (3.5-5.1); Sodium 140 mmol/L (135-145); Total Bilirubin 0.9 mg/dl (0.2-1.3); Total Protein 6.6 g/dl (6.3-8.2); eGFR > 60.00
== END ==
LOC: HWLAB 07:39
PROVIDERS: ATTENDING PHYSICIAN Internal Medicine Hematology & Oncology; FAMILY PHYSICIAN Internal Medicine
DX: C34.32 Malignant neoplasm of lower lobe, left bronchus or lung (principal); C82.09 Follicular lymphoma grade I, extranodal and solid organ sites; Z85.820 Personal history of malignant melanoma of skin
CPT/HCPCS: 36415; 80053; 85025

== ENCOUNTER → 2024-02-26 07:44 | Outpatient (REF) | payer MEDICARE, OTHER, SELFPAY ==
[2024-02-26 10:25] LABS: % Basophils 0.9 % (0-2); % Eosinophils 5.3 % (0-6); % Immature Granulocytes 0.3 % (0-0.5); % Lymphocytes 28.6 % (20.5-51.1); % Monocytes 14.2 % (1.7-9.3); % Neutrophils 50.7 % (42.2-75.2); Absolute Eosinophils 0.2 10^3/uL (0-0.7); Absolute Lymphocytes 0.9 10^3/uL (1.2-3.4); Absolute Monocytes 0.5 10^3/uL (0.1-0.6); Absolute Neutrophils 1.6 10^3/uL (1.4-6.5); Hematocrit 41.6 % (39.0-52.0); Hemoglobin 14.4 g/dL (13.0-18.0); Mean Corp Hgb Conc. 34.6 g/dL (33.0-37.0); Mean Corpuscular Hgb 30.7 pg (27.0-31.0); Mean Corpuscular Volume 88.7 fL (80.0-94.0); Nucleated Red Blood Cells % 0 % (-); Platelet Count 135 10^3/uL (130-400); Red Blood Cell Count 4.69 10^6/uL (4.70-6.10); Red Cell Dist. Width 14.2 % (11.5-14.5); White Blood Cell Count 3.2 10^3/uL (4.8-10.8)
[2024-02-26 11:13] LABS: Folate > 20.0 ng/ml (2.76-20); Vitamin B12 420 pg/ml (239-931)
== END ==
LOC: HWLAB 07:44
PROVIDERS: ATTENDING PHYSICIAN Internal Medicine Hematology & Oncology; FAMILY PHYSICIAN Internal Medicine; REFERRING PHYSICIAN Internal Medicine Hematology & Oncology
DX: C34.32 Malignant neoplasm of lower lobe, left bronchus or lung (principal); Z85.820 Personal history of malignant melanoma of skin; C82.09 Follicular lymphoma grade I, extranodal and solid organ sites; J93.9 Pneumothorax, unspecified
CPT/HCPCS: 36415; 82607; 82746; 83735; 85025

== ENCOUNTER → 2024-05-13 06:21 | Outpatient (REF) | payer MEDICARE, OTHER, SELFPAY ==
[2024-05-13 10:41] LABS: HDL Cholesterol 50 mg/dl; LDL Cholesterol, Calculated 62 mg/dl; Total Cholesterol 128 mg/dl (50-199); Triglyceride 82 mg/dl (10-149); Very Low Density Lipoprotein 16 mg/dl (0-30)
== END ==
LOC: HWLAB 06:21
PROVIDERS: ATTENDING PHYSICIAN Specialist; FAMILY PHYSICIAN Internal Medicine
DX: E78.2 Mixed hyperlipidemia (principal); R97.20 Elevated prostate specific antigen [PSA]
CPT/HCPCS: 36415; 80061; 84153

== ENCOUNTER → 2024-06-06 07:53 | Outpatient (REF) | payer MEDICARE, OTHER, SELFPAY | LOC: RCS 07:53 | PROVIDERS: ATTENDING PHYSICIAN Internal Medicine Cardiovascular Disease; FAMILY PHYSICIAN Internal Medicine | DX: E78.2 Mixed hyperlipidemia (principal); I25.10 Atherosclerotic heart disease of native coronary artery without angina pectoris; R06.09 Other forms of dyspnea | CPT/HCPCS: 93017; 93350 ==

== ENCOUNTER → 2024-08-04 06:14 | Outpatient (REF) | payer MEDICARE, OTHER, SELFPAY ==
[2024-08-04 09:24] LABS: % Basophils 0.9 % (0-2); % Eosinophils 5.1 % (0-6); % Immature Granulocytes 0.2 % (0-0.5); % Lymphocytes 30.2 % (20.5-51.1); % Monocytes 12.5 % (1.7-9.3); % Neutrophils 51.1 % (42.2-75.2); Absolute Eosinophils 0.2 10^3/uL (0-0.7); Absolute Lymphocytes 1.3 10^3/uL (1.2-3.4); Absolute Monocytes 0.5 10^3/uL (0.1-0.6); Absolute Neutrophils 2.2 10^3/uL (1.4-6.5); Hematocrit 41.7 % (39.0-52.0); Hemoglobin 14.5 g/dL (13.0-18.0); Mean Corp Hgb Conc. 34.8 g/dL (33.0-37.0); Mean Corpuscular Hgb 31.4 pg (27.0-31.0); Mean Corpuscular Volume 90.3 fL (80.0-94.0); Mean Platelet Volume 11.1 fL (7.4-10.4); Nucleated Red Blood Cells % 0 % (-); Platelet Count 131 10^3/uL (130-400); Red Blood Cell Count 4.62 10^6/uL (4.70-6.10); Red Cell Dist. Width 13.3 % (11.5-14.5); White Blood Cell Count 4.3 10^3/uL (4.8-10.8)
[2024-08-04 09:44] LABS: ALT (SGPT) 21 U/L (0-50); AST (SGOT) 21 U/L (17-59); Alkaline Phosphatase 57 U/L (38-126); Blood Urea Nitrogen 17 mg/dl (9-20); Calcium 9.2 mg/dl (8.4-10.2); Carbon Dioxide 24 mmol/L (22-30); Chloride 106 mmol/L (98-107); Direct Bilirubin 0.2 mg/dl (0.0-0.4); Glucose 92 mg/dl (70-99); Potassium 4.6 mmol/L (3.5-5.1); Sodium 139 mmol/L (135-145); Total Bilirubin 0.9 mg/dl (0.2-1.3); Total Protein 6.2 g/dl (6.3-8.2); eGFR > 60.00
== END ==
LOC: HWLAB 06:14
PROVIDERS: ATTENDING PHYSICIAN Internal Medicine Hematology & Oncology; FAMILY PHYSICIAN Internal Medicine; REFERRING PHYSICIAN Specialist
DX: C82.09 Follicular lymphoma grade I, extranodal and solid organ sites (principal); C34.32 Malignant neoplasm of lower lobe, left bronchus or lung; Z85.820 Personal history of malignant melanoma of skin; D72.819 Decreased white blood cell count, unspecified; G47.62 Sleep related leg cramps; R97.20 Elevated prostate specific antigen [PSA]
CPT/HCPCS: 36415; 80053; 82248; 84153; 85025

== ENCOUNTER → 2024-08-05 17:28 | Outpatient (REF) | payer MEDICARE, OTHER, SELFPAY | LOC: MRI 3T 17:28 | PROVIDERS: ATTENDING PHYSICIAN Specialist; FAMILY PHYSICIAN Internal Medicine | DX: R97.20 Elevated prostate specific antigen [PSA] (principal) | CPT/HCPCS: 72197; A9575 ==

== ENCOUNTER → 2024-08-25 10:30 | Outpatient (REF) | payer MEDICARE, OTHER, SELFPAY | LOC: CLAB 10:30 | PROVIDERS: ATTENDING PHYSICIAN Specialist | DX: R97.20 Elevated prostate specific antigen [PSA] (principal) | CPT/HCPCS: 88305 ==

== ENCOUNTER → 2024-11-04 06:11 | Outpatient (REF) | payer MEDICARE, OTHER, SELFPAY ==
[2024-11-04 09:47] LABS: ALT (SGPT) 17 U/L (0-50); AST (SGOT) 22 U/L (17-59); Albumin 4.3 g/dl (3.5-5.0); Alkaline Phosphatase 46 U/L (38-126); Blood Urea Nitrogen 17 mg/dl (9-20); Calcium 9.2 mg/dl (8.4-10.2); Carbon Dioxide 28 mmol/L (22-30); Chloride 107 mmol/L (98-107); Glucose 93 mg/dl (70-99); HDL Cholesterol 56 mg/dl; LDL Cholesterol, Calculated 64 mg/dl; Potassium 4.4 mmol/L (3.5-5.1); Sodium 141 mmol/L (135-145); Total Protein 6.7 g/dl (6.3-8.2); Very Low Density Lipoprotein 18 mg/dl (0-30); eGFR > 60.00
[2024-11-04 10:13] LABS: Hematocrit 43.4 % (39.0-52.0); Hemoglobin 14.6 g/dL (13.0-18.0); Mean Corp Hgb Conc. 33.6 g/dL (33.0-37.0); Mean Corpuscular Volume 91.6 fL (80.0-94.0); Nucleated Red Blood Cells % 0 % (-); Platelet Count 130 10^3/uL (130-400); Red Cell Dist. Width 13.2 % (11.5-14.5)
[2024-11-04 10:19] LABS: Glycohemoglobin (HgbA1c) 5.3 % (4.0-5.6)
== END ==
LOC: HWLAB 06:11
PROVIDERS: ATTENDING PHYSICIAN Internal Medicine Hematology & Oncology; FAMILY PHYSICIAN Internal Medicine
DX: C82.09 Follicular lymphoma grade I, extranodal and solid organ sites (principal); C34.32 Malignant neoplasm of lower lobe, left bronchus or lung; E78.2 Mixed hyperlipidemia; R73.01 Impaired fasting glucose
CPT/HCPCS: 36415; 80053; 80061; 82248; 83036; 85025

== ENCOUNTER → 2024-12-02 06:24 | Outpatient (REF) | payer MEDICARE, OTHER, SELFPAY ==
[2024-12-02 10:14] LABS: PSA, Total - Diagnostic 0.18 ng/ml (0.0-4.0)
== END ==
LOC: HWLAB 06:24
PROVIDERS: ATTENDING PHYSICIAN Radiology Radiation Oncology; FAMILY PHYSICIAN Internal Medicine; OTHER PHYSICIAN Internal Medicine Hematology & Oncology; REFERRING PHYSICIAN Radiology Radiation Oncology
DX: C61 Malignant neoplasm of prostate (principal)
CPT/HCPCS: 36415; 84153

== ENCOUNTER → 2025-02-10 06:06 | Outpatient (REF) | payer OTHER, MEDICARE, SELFPAY ==
[2025-02-10 10:04] LABS: Hematocrit 39.8 % (39.0-52.0); Hemoglobin 13.6 g/dL (13.0-18.0); Mean Corp Hgb Conc. 34.2 g/dL (33.0-37.0); Mean Corpuscular Volume 90.7 fL (80.0-94.0); Nucleated Red Blood Cells % 0 % (-); Platelet Count 142 10^3/uL (130-400); Red Cell Dist. Width 13.3 % (11.5-14.5)
[2025-02-10 10:10] LABS: ALT (SGPT) 19 U/L (0-50); AST (SGOT) 21 U/L (17-59); Albumin 4.0 g/dl (3.5-5.0); Alkaline Phosphatase 52 U/L (38-126); Blood Urea Nitrogen 12 mg/dl (9-20); Calcium 9.6 mg/dl (8.4-10.2); Carbon Dioxide 30 mmol/L (22-30); Chloride 105 mmol/L (98-107); Glucose 96 mg/dl (70-99); Potassium 4.4 mmol/L (3.5-5.1); Sodium 139 mmol/L (135-145); Total Protein 6.4 g/dl (6.3-8.2); eGFR > 60.00
== END ==
LOC: HWLAB 06:06
PROVIDERS: ATTENDING PHYSICIAN Internal Medicine Hematology & Oncology; FAMILY PHYSICIAN Internal Medicine
DX: C82.09 Follicular lymphoma grade I, extranodal and solid organ sites (principal); C34.32 Malignant neoplasm of lower lobe, left bronchus or lung; Z85.820 Personal history of malignant melanoma of skin; D72.819 Decreased white blood cell count, unspecified; G47.62 Sleep related leg cramps
CPT/HCPCS: 36415; 80048; 80076; 85025

== ENCOUNTER 2025-02-15 00:52 | Emergency (ER) | payer MEDICARE, OTHER, SELFPAY ==
[2025-02-15] VITALS (8 sets, daily range): BP systolic 97–120; BP diastolic 68–79; BMI 30.6
--- NOTE | 2025-02-15 01:51 | EDRN ---
Pt was watching TV around [id number] and felt his heart was racing which made pt run to the bathroom every 10-15 minutes to urinate. This lasted few hours. Pt felt his HR went down when he arrived in ED and urination decreased. Pt says lupron has
increased pt's urination. Pt is on radiation for prostate cancer. Pt had afib during postop Apr 2023. Pt did not know he was in afib at the time and says it resolved on its own. Pt denies palpitation/fluttering but says 'I just can't relax, it's
like an adrenaline thing.' No sob, abd pain, n/v. Pt adds he gets hot flashes from the lupron which causes some queasiness. No recent illness or ill contacts.
[2025-02-15 02:18] LABS: Hematocrit 41.7 % (39.0-52.0); Hemoglobin 14.2 g/dL (13.0-18.0); Mean Corp Hgb Conc. 34.1 g/dL (33.0-37.0); Mean Corpuscular Volume 91.6 fL (80.0-94.0); Nucleated Red Blood Cells % 0 % (-); Platelet Count 148 10^3/uL (130-400); Red Cell Dist. Width 13.4 % (11.5-14.5)
[2025-02-15 02:52] LABS: ALT (SGPT) 19 U/L (0-50); AST (SGOT) 28 U/L (17-59); Albumin 4.2 g/dl (3.5-5.0); Alkaline Phosphatase 43 U/L (38-126); Blood Urea Nitrogen 16 mg/dl (9-20); Calcium 9.5 mg/dl (8.4-10.2); Carbon Dioxide 27 mmol/L (22-30); Chloride 107 mmol/L (98-107); Estimated Creatinine Clearance 97 ml/min; Glucose 105 mg/dl (70-99); Potassium 4.8 mmol/L (3.5-5.1); Sodium 140 mmol/L (135-145); Total Protein 6.8 g/dl (6.3-8.2); eGFR > 60.00
[2025-02-15 02:59] LABS: Troponin I < 0.012 ng/ml
--- NOTE | 2025-02-15 06:25 | ED.GENMED ---
History of Present Illness
General
Chief Complaint: Heart Rate Problem
Source: patient
Exam Limitations: none
Time Seen by Provider: 02/15/25 06:09
History of Present Illness
History of Present Illness:
See MDM
Past History
Past History
ED Past Medical History: Hypercholesterolemia
ED Past Surgical History: None
Social History
Tobacco: Non-smoker
Alcohol: Occasional
Drug: None
Personal:
Living: with family
Phy Exam
Physical Exam
Physical Exam:
See MDM
Scores
[id number] Score for Afib Stroke Risk
Age in Years (65=0, 65-74=1, >/=75=2): > or = 75
Sex (Female=+1): Male
Congestive Heart Failure History (Yes=+1): No
Hypertension History (Yes=+1): No
Stroke/TIA/Thromboembolism History (Yes=+2): No
Vascular Disease History (Yes=+1): No
Diabetes Mellitus (Yes=+1): No
Score: 2
Anticoagulation Recommendations: Recommend anticoagulation (as validated in nonvalvular fib)
Course
Orders/Labs/Results
Orders:
Orders
02/15/25 01:02
Electrocardiogram (*1) Urgent
Reason for Study: Other
Other Reason for Exam: Respiratory Distress
Cardiac Monitoring- Treatment ONCE
EKG- Treatment ONCE
IV Insert/Care/Rem.- Treatment PRN
O2 Therapy [RESP] Urgent
Titrate/Wean O2 to maintain O2 sat greater than (%): 93
Special Instructions: TO MAINTAIN CONTINUOUS O2 SATS >/= 93%
Pulse Ox/cont/shift [RESP] Urgent
Quantity: 1
Special Instructions: continuous pulse ox
02/15/25 01:58
Complete Blood Count/With Diff Urgent
Comprehensive Metabolic Panel Urgent
Troponin I Urgent
02/15/25 06:20
0.9% Sodium Chloride 1000 ml [Nss] 1,000 ml IV BOLUS
Diltiazem HCl [Cardizem] 15 mg IV NOW STA
02/15/25 06:30
Urinalysis Reflex To Culture Urgent
Date Specimen was Collected: 02/15/25
Time Specimen was Collected: 06:26
Urine Microscopic Reflex Cult Urgent
02/15/25 06:33
EKG [Electrocardiogram (*1)] Urgent
Reason for Study: Other
Other Reason for Exam: converted to NSR
EKG- Treatment ONCE
02/15/25 06:43
Metoprolol Xl [Toprol Xl] 25 mg PO NOW STA
Abnormal Lab Results
02/15/25 02/15/25
01:58 06:30
WBC 3.3 L 10^3/uL
(4.8-10.8)
RBC 4.55 L 10^6/uL
(4.70-6.10)
MCH 31.2 H pg
(27.0-31.0)
Absolute Lymphs (auto) 0.8 L 10^3/uL
(1.2-3.4)
Monocytes % 15.5 H %
(1.7-9.3)
Eosinophils % 9.4 H %
(0-6)
Glucose 105 H mg/dl
(70-99)
Urine Bacteria (Reflex) Few A
(Negative)
Urine Albumin (Reflex) 1+ A
(Neg - Trace)
02/15/25 01:58
02/15/25 01:58
Vital Signs
Initial and Last Documented VS:
Initial Vital Signs
Temp Pulse Resp BP Pulse Ox
97.6 F 66 20 107/74 97
02/15/25 01:13 02/15/25 01:13 02/15/25 01:13 02/15/25 01:13 02/15/25 01:13
Last Documented Vital Signs
Temp Pulse Resp BP Pulse Ox
97.6 F 60 16 108/72 97
02/15/25 01:13 02/15/25 07:06 02/15/25 07:00 02/15/25 07:06 02/15/25 06:28
MDM/Problems Addressed
Differential Diagnosis Includes:
Note:
CHIEF COMPLAINT(S)
Palpitations with suspected atrial fibrillation.
HISTORY OF PRESENT ILLNESS
The patient is a 79-year-old male with a history of paroxysmal atrial fibrillation presenting with complaints of heart racing and palpitations noticed while watching television last evening. The patient checked his pulse at home and reported it to
be over 100 beats per minute. He is not currently on anticoagulant therapy and has no known bleeding issues. According to the patients account, he is familiar with atrial fibrillation and its consequences, including an increased risk for stroke. The
patient denies any previous blood pressure medications but has a past medical history of hormone therapy with leuprolide for prostate cancer. Currently, the patient experiences symptoms suggestive of atrial fibrillation with a rapid ventricular
response, as described by 'heart dancing' and increased urinary frequency. Patient states he was diagnosed with A-fib in 2022 but this was blamed on a side effect from surgery. Patient has followed up with cardiology in the past with Dr. Henry
MEDICATIONS
The patient receives leuprolide every six months for prostate cancer.
REVIEW OF SYSTEMS
- Cardiovascular: Heart palpitations described as racing, with a pulse reported over 100 beats per minute.
- Genitourinary: Increased frequency of urination noted.
- Neurological: Denies fainting episodes; concerned about potential fainting due to elevated heart rate.
PHYSICAL EXAM
General: Alert, no acute distress.
Skin: Warm, dry.
Head: Normocephalic, atraumatic
Neck: Appears supple, trachea midline.
Eyes, Ears, Nose, Mouth, and Throat: Moist mucous membranes
Cardiovascular: No signs of cyanosis. Tachycardic and irregular. No murmur noted
Respiratory: Respirations are non-labored.
Abdomen: Non-distended
Musculoskeletal: No deformities
Neurological: No focal neurological deficit observed.
Psychiatric: Cooperative, appropriate mood and affect.
PROBLEM LIST
Acute:
- Atrial fibrillation with rapid ventricular response.
CHRONIC MEDICAL CONDITIONS SIGNIFICANTLY AFFECTING CARE
- Prostate cancer undergoing hormone therapy.
PLAN
1. Administer intravenous diltiazem (Cardizem) to control heart rate.
2. Initiate intravenous fluids.
3. Check urine sample due to increased urination frequency, although urinary tract infection is unlikely.
4. Assess patients response to medication; if heart rate is controlled and symptoms improve, consider discharge with follow-up on a blood thinner and cardiology consultation.
5. If symptoms persist and heart rate remains uncontrolled, consider observation overnight.
6. Coordinate care with patient�s bromination equipment operator for continuous awareness and future management plans.
DIFFERENTIAL DIAGNOSIS
The Differential Diagnosis includes, in no particular order and is not limited to:
1. Atrial fibrillation with rapid ventricular response
2. Supraventricular tachycardia
3. Heart failure with preserved ejection fraction
4. Mitral valve stenosis
5. Hyperthyroidism
6. Anemia
7. Hypertensive heart disease
8. Electrolyte imbalance
9. Pulmonary embolism
10. Stress or anxiety-induced palpitations
EKG
My independent EKG interpretation is:
- Time of EKG: Not specified
- Rhythm: Atrial fibrillation with rapid ventricular response (RVR)
- Heart Rate: 126 beats per minute
- [place]: Normal
- ST Segment: No elevation noted
- Other Abnormalities: None explicitly mentioned
02/15/25 - 06:51
Patient spontaneously converted to normal sinus rhythm after returning from providing a urine specimen, without necessity for IV cardizem. Initiation of Eliquis is planned due to elevated [id number] score. Oral Metoprolol will be administered, and
patient will be placed on a cardiac callback tracker for ongoing monitoring.
SUMMARY OF ENCOUNTER
The patient, a 79-year-old male, was seen in the emergency department presenting with atrial fibrillation with rapid ventricular response (AFib with RVR). During the visit, he spontaneously converted to normal sinus rhythm. Due to his elevated
[id number] score, initiation of apixaban (Eliquis) was planned to reduce stroke risk. The patient was also started on metoprolol for rate control. His symptoms improved significantly throughout the visit, and he felt comfortable being discharged
home. He was placed on a cardiac callback tracker for ongoing monitoring and advised to avoid NSAIDs due to the new prescription of blood thinners.
DISPOSITION
Discharge
ASSESSMENT
The patient had a confirmed atrial fibrillation with rapid ventricular response, which spontaneously reverted to normal sinus rhythm.
PLAN
The patient will be started on apixaban (Eliquis) and oral metoprolol. He will avoid NSAIDs due to the initiation of apixaban. He will be included in a cardiac callback tracker for further monitoring and follow-up.
FOLLOW-UP INSTRUCTIONS
The patient should follow up with a bromination equipment operator for further cardiovascular evaluation and management.
MEDICATION RECONCILIATION
- Apixaban (Eliquis) initiated due to elevated [id number] score.
- Metoprolol prescribed for rate control.
MEDICAL DECISION MAKING
-Complexity of Data Reviewed: Chronic conditions affecting care include atrial fibrillation and prostate cancer undergoing hormone therapy. Differential Diagnosis includes:
1. Atrial fibrillation with rapid ventricular response
2. Supraventricular tachycardia
3. Heart failure with preserved ejection fraction
4. Mitral valve stenosis
5. Hyperthyroidism
6. Anemia
7. Hypertensive heart disease
8. Electrolyte imbalance
9. Pulmonary embolism
10. Stress or anxiety-induced palpitations
-Data:
Category 2
My independent interpretation of the EKG showed atrial fibrillation with rapid ventricular response, with a heart rate of 126 bpm.
Category 3
Discussion of management with the bromination equipment operator regarding initiation of Apixaban and Metoprolol.
-Risk:
Consideration of Admission/Observation: Escalation of care including admission/observation was considered given the complexity and risk of the patients presenting complaint, exam findings, and/or their underlying comorbidities. However, ultimately,
I feel the patient is safe for outpatient management with close follow-up. Reasoning: Work-up reassuring, does not reveal any acute life/organ-threatening processes, patients symptoms well controlled upon reevaluation, reexamination is reassuring,
vitals are stable, patient agreeable with discharge, and reliable for follow-up.
DIAGNOSIS
- Atrial fibrillation with rapid ventricular response (I48.0)
*Pulse Oximetry
SaO2: 97
Oxygen Mode of Delivery: Room air
Patient hypoxic: no
*Critical Care Note
Total Time (30-74mins, 75-104mins- exclusive of procedures): Not Applicable
ED Attending Note
-
Portions of this chart may have been created with voice recognition software.� Occasional wrong word or��sound alike� substitutions may have occurred due to the inherent limitations of voice recognition software.
Discharge Plan
Departure
Patient Disposition: Home (Routine Discharge)
Date of Disposition: 02/15/25
Time of Disposition: 07:17
Patient with high blood pressure during this ER visit?: No
Discharge Problem:
A-fib
Instructions: Atrial Fibrillation (DC), Chest Pain CBC Follow Up
Prescriptions:
New
metoprolol succinate [Toprol XL] 25 mg tablet extended release 24 hr
25 mg PO DAILY Qty: 30 0RF
Eliquis 5 mg tablet
5 mg PO BID Qty: 60 0RF
No Action
magnesium oxide 400 MG tablet
400 mg PO DAILY
pantoprazole 40 mg Tablet,Delayed Release (Dr/Ec)
40 mg PO DAILY
simvastatin 20 mg Tablet
20 mg PO DAILY
multivitamin Tablet
1 tab PO DAILY
Lupron Depot (6 Month) 45 mg Syringe Kit
45 mg IM [id number]
Calcium 600 + D(3)
1 tab PO DAILY
PreserVision AREDS
1 cap PO DAILY
coQ10 (ubiquinol)
1 cap PO DAILY
Patient Comments:
pt's thinks it is 300mg
Referrals:
Alejandra Devlin MD [Family Provider, Internal Medicine]
Shai Henry MD [Active, Cardiology]
Activity Restrictions/Additional Instructions:
Please return for any worsening symptoms.
You may return at any time if you have further concerns.
Please follow up with your doctor at the first available appointment, preferably this week.
I am placing you on a blood pressure medicine called metoprolol in addition to a blood thinner called Eliquis. Because of the blood thinner, please avoid medicines in the NSAID category such as ibuprofen and naproxen and Aleve.
If you develop recurrent palpitations, you can take an extra dose of your metoprolol. If symptoms persist, please return to the emergency department.
You were placed on the cardiac callback tracker. Someone from their office should call you in the next few days. If you do not hear from them in the next few days, please give them a call.
Thank you for choosing [facility].
Interventions
Interventions:
*Risk Screen - Suicide Last Done: 02/15/25 01:13
*General Assessment Last Done: 02/15/25 01:13
*Neglect/Abuse Screening Last Done: 02/15/25 01:13
*ED- Fall Risk Assessment Last Done: 02/15/25 02:09
*ED COVID-19 Vaccine History Last Done: 02/15/25 01:13
*ED Influenza Vaccine History Last Done: 02/15/25 01:13
ED- Cardiac Assessment Last Done: 02/15/25 06:41
ED- Pulmonary Assessment Last Done: 02/15/25 02:09
Discharge Date and Time
Print Language: MACEDONIAN
[2025-02-15] MEDS: NSS 1000 IV (06:31)
--- NOTE | 2025-02-15 06:33 | EDRN ---
Pt returned from bathroom with urine specimen, placed back on monitor and pt in NSR rate 0f 60. Repeat EKG being obtained. Cardizem IV on hold
[2025-02-15 06:57] LABS: Urine Character Clear (Clear)
[2025-02-15] MEDS: TOPROL XL 25 MG PO (07:06)
[2025-02-15 07:08] LABS: Urine Red Blood Cell 0-2 /HPF (0-2); Urine Squamous Cell 0-2 /LPF (Few)
[2025-02-15] MEDS: ELIQUIS 5 MG PO ×2 (07:42→07:43)
== END 2025-02-15 08:02 | disposition home or self-care (01) ==
LOC: EMR 00:52
PROVIDERS: Student in an Organized Health Care Education/Training Program; EMERGENCY PHYSICIAN Student in an Organized Health Care Education/Training Program; FAMILY PHYSICIAN Internal Medicine
DX: I48.91 Unspecified atrial fibrillation (principal); R00.2 Palpitations; E78.00 Pure hypercholesterolemia, unspecified
CPT/HCPCS: 99283; 80053; 81003; 81015; 84484; 85025; 93005

== ENCOUNTER → 2025-02-25 14:36 | Outpatient (REF) | payer MEDICARE, OTHER, SELFPAY | LOC: HWRCS 14:36 | PROVIDERS: ATTENDING PHYSICIAN Internal Medicine Cardiovascular Disease; FAMILY PHYSICIAN Internal Medicine | DX: I48.0 Paroxysmal atrial fibrillation (principal) | CPT/HCPCS: 93306 ==

== ENCOUNTER → 2025-03-20 08:18 | Outpatient (REF) | payer MEDICARE, OTHER, SELFPAY | LOC: RAD 08:18 | PROVIDERS: ATTENDING PHYSICIAN Internal Medicine Hematology & Oncology; OTHER PHYSICIAN Internal Medicine; OTHER PHYSICIAN Internal Medicine Critical Care Medicine; OTHER PHYSICIAN Radiology Radiation Oncology; REFERRING PHYSICIAN Specialist | DX: C34.32 Malignant neoplasm of lower lobe, left bronchus or lung (principal); C82.09 Follicular lymphoma grade I, extranodal and solid organ sites; Z85.820 Personal history of malignant melanoma of skin; D72.819 Decreased white blood cell count, unspecified; G47.62 Sleep related leg cramps | CPT/HCPCS: 71260; 74160; Q9967 ==

== ENCOUNTER → 2025-03-31 09:22 | Outpatient (REF) | payer MEDICARE, OTHER, SELFPAY | LOC: RCS 09:22 | PROVIDERS: ATTENDING PHYSICIAN Internal Medicine Hematology & Oncology | DX: C82.09 Follicular lymphoma grade I, extranodal and solid organ sites (principal); C34.32 Malignant neoplasm of lower lobe, left bronchus or lung; Z85.820 Personal history of malignant melanoma of skin; D72.819 Decreased white blood cell count, unspecified; G47.62 Sleep related leg cramps; C61 Malignant neoplasm of prostate | CPT/HCPCS: 93005 ==

== ENCOUNTER → 2025-04-20 06:36 | Outpatient (REF) | payer MEDICARE, OTHER, SELFPAY ==
[2025-04-20 08:08] LABS: PSA, Total - Diagnostic < 0.06 ng/ml (0.0-4.0)
== END ==
LOC: REG 06:36
PROVIDERS: ATTENDING PHYSICIAN Radiology Radiation Oncology; FAMILY PHYSICIAN Internal Medicine; OTHER PHYSICIAN Internal Medicine Hematology & Oncology; REFERRING PHYSICIAN Specialist
DX: C61 Malignant neoplasm of prostate (principal)
CPT/HCPCS: 36415; 84153